=== PATIENT | male | born 1970 | race Caucasian/White ===

== ENCOUNTER 2017-03-08 19:36 | Emergency (ER) | payer BC ==
[~2017-03-08] VITALS: Ht 177.8 cm; Wt 91.6 kg
[~2017-03-08 19:36] MED LIST: ACET-1256 PO
[2017-03-08 19:38] VITALS: TEMP 36.8; Ht 177.8 cm; Wt 91.6 kg
[2017-03-08] MEDS ORDERED: DIPHTHERIA/TETANUS/PERTUSSIS 0.5 ML SYR/VIAL IM. ONE (20:00)
[2017-03-08] MEDS ORDERED: XYLOCAINE 1%/SOD BICARB 20 ML VIAL INFIL ONE (20:00)
[2017-03-08] MEDS ORDERED: TRAM-10 PO (20:52)
[2017-03-08] MEDS ORDERED: CEPH500C PO (20:52)
[2017-03-08] MEDS ORDERED: CEPHALEXIN 500MG HOME PACK 1 EA BTL PO ONE (21:00)
[2017-03-08] MEDS ORDERED: TRAMADOL HCL 50 MG HOME PACK PO ONE (21:00)
--- NOTE | 2017-03-08 21:15 | EMERGENCY ROOM VISIT NOTE ---
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 History of Present Illness The patient is a 46 year old male who presents to the Emergency Room with complaints of lacerations to his left index and long finger. The patient was working on a lawnmower when he cut his fingers on a fender. The patient reports significant bleeding from the wounds. He rates his discomfort a 2 out of 10. The patient is [id number]. He is uncertain of his last tetanus immunization. Review of Systems 10 system review was performed and was negative except for pertinent positives and negatives as indicated in history of present illness Past Medical/Surgical History Medical Problems: (1) GERD (gastroesophageal reflux disease) Family History Unremarkable Social History Smoking Status: Never Smoker Alcohol Use: heavy Marital Status: Housing Status: lives with family Occupation Status: retired Current/Historical Medications Scheduled Cephalexin Monohydrate (Keflex), 500 MG PO QID Scheduled PRN Acetaminophen (Tylenol), 1,000 MG PO Q6 PRN for Pain Tramadol (Ultram), 1-2 TAB PO Q4H PRN for Pain Allergies Coded Allergies: Codeine (Verified Allergy, Unknown, 03/08/17) Physical Exam Vital Signs Date Time Temp Pulse Resp B/P (MAP) Pulse Ox O2 Delivery O2 Flow Rate FiO2 03/08/17 19:38 36.8 88 16 149/95 99 Room Air Physical Exam CONSTITUTIONAL: Healthy and well nourished. Alert and oriented X 3 with positive affect. Patient does not appear in any acute distress. Smell of EtOH is present. HEENT: Normocephalic, atraumatic. Pupils equal, round and reactive. NECK: Full active range of motion without discomfort. MUSCULOSKELETAL: Examination shows lacerations of the left index and long fingers. The lacerations are transverse in orientation across the middle phalanx regions. No active bleeding noted. The patient is able to flex his fingers against resistance. Capillary refill is less than 2 seconds. Total laceration length of both fingers is 3 cm. INTEGUMENTARY: No rash or other significant dermatologic conditions noted. NEUROLOGIC: Left index and third fingertips are sensory intact. Medical Decision & Procedures Medications Administered Medications (Trade) Dose Ordered Sig/Keesha Route Start Time Stop Time Status Last Admin Dose Admin Lidocaine HCl (Buffered Lidocaine 1% Inj) 20 ml ONE ONCE INFIL 03/08/17 20:00 03/08/17 20:02 DC 03/08/17 20:06 20 ML Diphtheria/ Pertussis/Tetanus Vacc (Adacel Inj) 0.5 ml ONCE ONCE IM. 03/08/17 20:00 03/08/17 20:02 DC 03/08/17 20:08 0.5 ML Tramadol HCl (Ultram Home Pack) 1 homepack UD ONCE PO 03/08/17 21:00 03/08/17 21:01 DC 03/08/17 21:13 1 HOMEPACK Cephalexin Monohydrate (Keflex 500MG Home Pack) 1 homepack NOW ONCE PO 03/08/17 21:00 03/08/17 21:01 DC 03/08/17 21:12 1 HOMEPACK Procedure Laceration repair was performed under digital block anesthesia by our physician training program assistant student under my direct supervision. The patient also provided verbal consent for this procedure. Using buffered 1% lidocaine without epinephrine, good digital block anesthesia was administered. The wounds were then peripherally cleansed with iodine. The wounds were thoroughly pressure irrigated. The patient did have an active bleeding arterial of the index finger. At this point, a 5-0 nylon [id number] suture was applied with excellent hemostasis. The remaining wounds were then approximated using 5-0 nylon simple interrupted sutures. Bacitracin dressings were applied. ED Course Patient history and physical exam were performed. Nurse's notes were reviewed. The patient was administered Adacel IM. Laceration repair was performed under digital block anesthesia. The patient was provided a prescription for Keflex to minimize risk for infection. He was encouraged to alternate ibuprofen and Tylenol for baseline pain relief. He did receive a home pack and prescription for Ultram as needed for breakthrough pain. Suture removal in 12- 14 days, or seek reevaluation sooner for any signs of infection. The patient was happy with plan of care, and denied any pain at the time of discharge. The patient was also advised that his blood pressures were elevated while in the emergency department. He was instructed to follow-up with his family doctor for blood pressure recheck. Medical Decision Impression Primary Impression: Laceration of left index finger Additional Impressions: Laceration of left middle finger Elevated blood pressure reading Departure Information Dispostion Home / Self-Care Prescriptions Tramadol (Ultram) 50 Mg Tab 1-2 TAB PO Q4H Y for Pain, #20 TAB For Initial Treatment Prov: Bebeto Quintana PA 03/08/17 Cephalexin Monohydrate (Keflex) 500 Mg Cap 500 MG PO QID for 7 Days, #28 CAP Prov: Bebeto Quintana PA 03/08/17 Forms HOME CARE DOCUMENTATION FORM, IMPORTANT VISIT INFORMATION Patient Instructions [facility] Additional Instructions Keep wound clean and dry. Do not allow any crusting or dried blood to accumulate on sutures. If this occurs, use a 1:1 solution of hydrogen peroxide/ water on a Q-tip to clean the wound. Use an antibiotic ointment for 3-4 days, then let wound dry. Suture removal in 12-14 days. You may call your family doctor to schedule an appointment for suture removal. Return to the emergency department for any signs of infection (increasing redness, swelling, drainage). Ice and elevate for swelling and pain. Complete all Keflex antibiotics as prescribed - Keflex 500 mg 4 times daily. Ibuprofen 800 mg and/or Tylenol 1000 mg every 8 hours. You may also alternate these medications for more effective pain relief: Ibuprofen --4 HRS--> Tylenol --4 HRS--> ibuprofen --4 HRS--> Tylenol .... Ultram if needed for worse pain. Problem Qualifiers Primary Impression: Laceration of left index finger Encounter type: initial encounter Damage to nail status: without damage Foreign body presence: without foreign body Qualified Codes: S61.211A - Laceration without foreign body of left index finger without damage to nail, initial encounter Additional Impressions: Laceration of left middle finger Encounter type: initial encounter Damage to nail status: without damage Foreign body presence: without foreign body Qualified Codes: S61.213A - Laceration without foreign body of left middle finger without damage to nail, initial encounter
[2017-03-08 21:19] VITALS: BP 139/101; PULSE 94; O2SAT 94
== END 2017-03-08 21:19 | disposition home or self-care (01) ==
LOC: C.EDB 19:37 → C.EDD 21:19
DX: S61.211A Laceration without foreign body of left index finger without damage to nail, initial encounter (principal); S61.213A Laceration without foreign body of left middle finger without damage to nail, initial encounter; W45.8XXA Other foreign body or object entering through skin, initial encounter; Z23 Encounter for immunization; R03.0 Elevated blood-pressure reading, without diagnosis of hypertension; K21.9 Gastro-esophageal reflux disease without esophagitis; Z88.5 Allergy status to narcotic agent

== ENCOUNTER 2017-11-19 16:20 | Emergency (ER) | payer BC ==
[~2017-11-19] VITALS: Ht 177.8 cm; Wt 89.0 kg
[2017-11-19 16:23] VITALS: TEMP 36.8; Ht 177.8 cm; Wt 89.0 kg
--- NOTE | 2017-11-19 16:48 | EMERGENCY ROOM VISIT NOTE ---
History Report prepared by Ashley: Gabriella Morris Under the Supervision of: Dr. Sofia Moreno D.O. First contact with patient: 16:28 Chief Complaint: FLU LIKE SX Stated Complaint: POSSIBLE SHINGLES History of Present Illness The patient is a 47 year old male who presents to the Emergency Room with complaints of persistent flu like symptoms for the past 3 days. He is accompanied by his . He states he has experienced cold sweats, fevers, chills, rhinorrhea, a sore throat. He last had Ibuprofen for the fever at 1300 today. He denies any cough except for occasionally needing to clear mucous from his throat. He has been using over the counter cold medications with good relief. About 2 days ago, he developed a rash on his back. His is concerned he may have shingles and the patient notes he did have chicken pox as a child. The patient admits to diarrhea for the past few days. He has been having 4 to 5 episodes a day. He denies any melena but states his stool did look "dark black". He has not been vomiting. He has been experiencing more increased acid reflux recently but no longer takes daily Nexium. The patient admits to a history of diverticulitis approximately 2 years ago. His states he drinks "a lot of beer". 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 A total of 10 systems reviewed and were otherwise negative. Past Medical & Surgical Medical Problems: (1) GERD (gastroesophageal reflux disease) Social History Smoking Status: Never Smoker Alcohol Use: heavy Drug Use: none Marital Status: Housing Status: lives with family Occupation Status: retired Current/Historical Medications Scheduled Dextromethorphan-Phenylephrine (Vicks Dayquil Cold & Flu), 2 CAP PO PRN UD Esomeprazole Magnesium (Nexium), 1 CAP PO DAILY Gabapentin (Neurontin), 100 MG PO TID Scheduled PRN Acetaminophen (Tylenol), 2-3 TABS PO Q6 PRN for Pain Allergies Coded Allergies: Codeine (Verified Allergy, Unknown, 03/08/17) Physical Exam Vital Signs Date Time Temp Pulse Resp B/P (MAP) Pulse Ox O2 Delivery O2 Flow Rate FiO2 11/19/17 18:35 77 16 139/89 95 11/19/17 17:43 77 16 139/89 95 Room Air 11/19/17 16:23 36.8 79 18 158/97 97 Room Air Physical Exam GENERAL: alert, anxious appearing, well nourished, no distress, non-toxic EYE EXAM: normal conjunctiva, PERRL and EOM's grossly intact OROPHARYNX: no exudate, no erythema, lips, buccal mucosa, and tongue normal and mucous membranes are moist NECK: supple, no nuchal rigidity, no adenopathy, non-tender LUNGS: Clear to auscultation. Normal chest wall mechanics HEART: no murmurs, S1 normal and S2 normal ABDOMEN: abdomen soft, non-tender, normo-active bowel sounds, no masses, no rebound or guarding. RECTAL: No hemorrhoids, no anal fissure, no stool in rectal vault, mucous is guaiac negative on testing. BACK: Back is symmetrical on inspection and there is no deformity, no midline tenderness, no CVA tenderness. SKIN: Scattered crusted over erythematous lesions noted to the right lateral lumbar area, not class in appearance for zoster, no vesicles, no evidence of cellulitis, no ecchymosis, no drainage. UPPER EXTREMITIES: upper extremities are grossly normal. LOWER EXTREMITIES: No pitting edema. NEURO EXAM: Normal sensorium, cranial nerves II-XII grossly intact, normal speech, no gross weakness of arms, no gross weakness of legs. Medical Decision & Procedures Laboratory Results 11/19/17 17:15 Red Blood Count 4.67, Mean Corpuscular Volume 88.9, Mean Corpuscular Hemoglobin 31.7, Mean Corpuscular Hemoglobin Concent 35.7, Mean Platelet Volume 9.0, Neutrophils (%) (Auto) 59.9, Lymphocytes (%) (Auto) 24.7, Monocytes (%) (Auto) 8.0, Eosinophils (%) (Auto) 5.9, Basophils (%) (Auto) 0.8, Neutrophils # (Auto) 4.34, Lymphocytes # (Auto) 1.79, Monocytes # (Auto) 0.58, Eosinophils # (Auto) 0.43, Basophils # (Auto) 0.06 11/19/17 17:15 Test 11/19/17 17:15 White Blood Count 7.25 K/uL (4.8-10.8) Red Blood Count 4.67 M/uL (4.7-6.1) Hemoglobin 14.8 g/dL (14.0-18.0) Hematocrit 41.5 % (42-52) Mean Corpuscular Volume 88.9 fL (80-100) Mean Corpuscular Hemoglobin 31.7 pg (25-34) Mean Corpuscular Hemoglobin Concent 35.7 g/dl (32-36) Platelet Count 245 K/uL (130-400) Mean Platelet Volume 9.0 fL (7.4-10.4) Neutrophils (%) (Auto) 59.9 % Lymphocytes (%) (Auto) 24.7 % Monocytes (%) (Auto) 8.0 % Eosinophils (%) (Auto) 5.9 % Basophils (%) (Auto) 0.8 % Neutrophils # (Auto) 4.34 K/uL (1.4-6.5) Lymphocytes # (Auto) 1.79 K/uL (1.2-3.4) Monocytes # (Auto) 0.58 K/uL (0.11-0.59) Eosinophils # (Auto) 0.43 K/uL (0-0.5) Basophils # (Auto) 0.06 K/uL (0-0.2) RDW Standard Deviation 39.1 fL (36.4-46.3) RDW Coefficient of Variation 12.3 % (11.5-14.5) Immature Granulocyte % (Auto) 0.7 % Immature Granulocyte # (Auto) 0.05 K/uL (0.00-0.02) Prothrombin Time 10.6 SECONDS (9.0-12.0) Prothromb Time International Ratio 1.0 (0.9-1.1) Anion Gap 6.0 mmol/L (3-11) Est Creatinine Clear Calc Drug Dose 115.3 ml/min Estimated GFR () 117.7 Estimated GFR (Non- 101.6 BUN/Creatinine Ratio 15.3 (10-20) Calcium Level 8.9 mg/dl (8.5-10.1) Total Bilirubin 0.5 mg/dl (0.2-1) Aspartate Amino Transf (AST/SGOT) 15 U/L (15-37) Alanine Aminotransferase (ALT/SGPT) 36 U/L (12-78) Alkaline Phosphatase 90 U/L (45-117) Total Protein 7.1 gm/dl (6.4-8.2) Albumin 3.4 gm/dl (3.4-5.0) Globulin 3.7 gm/dl (2.5-4.0) Albumin/Globulin Ratio 0.9 (0.9-2) Laboratory results per my review. Medications Administered Medications (Trade) Dose Ordered Sig/Keesha Route Start Time Stop Time Status Last Admin Dose Admin Pantoprazole Sodium 40 mg/ Syringe 10 ml @ 5 mls/min NOW ONCE IV 11/19/17 17:15 11/19/17 17:16 DC 11/19/17 18:28 5 MLS/MIN Gabapentin (Neurontin Cap) 100 mg NOW STAT PO 11/19/17 17:55 11/19/17 17:56 DC 11/19/17 18:32 100 MG ED Course 1637: The patient was evaluated in room C5. A complete history and physical exam was performed. 1715: Pantoprazole Sodium 40 mg/Syringe 10 ml @ 5 mls/min IV. 1755: Gabapentin 100 mg PO. 1756: I reevaluated the patient. He is feeling better and resting comfortably. I updated him on his results and discharge instructions and he verbalized complete understanding and agreement. Medical Decision Prior records/ancillary studies reviewed. Triage Nursing notes reviewed. The patient's history was concerning for fever. Differential diagnosis: Etiologies such as viral syndrome, otitis, pharyngitis, pneumonia, influenza, meningitis, urinary tract infection, sepsis, bacteremia, as well as others were entertained. Patient well appearing here despite complaints. Patient heme-negative on guaiac testing and had a soft and nontender abdomen. Patient's labs reassuring. Discussed with him avoidance of acidity in his diet given the recent increasing GERD. Discussed risk for peptic ulcer disease and GI bleed. Discussed close follow-up with family doctor in possible need for additional GI evaluation given history. Discussed use of an acid reducing medication. Discussed symptoms to watch and return for, he verbalized understanding was agreeable with plan. Patient with no recurrence of any symptoms while here, well-appearing at time of discharge, vital signs stable and tolerating by mouth. Rash on the right lateral lumbar region not classic in appearance for zoster however possible given the patient is previously had chickenpox as a child. Areas were scattered and not coalescing, mild erythematous base noted however no vesicles and no crusting. Area appeared more consistent with skin irritation or prickly heat that was excoriated scratching. Medication Reconcilliation Current Medication List: was personally reviewed by me Blood Pressure Screening Patient's blood pressure: Elevated blood pressure Blood pressure disposition: Elevated BP felt to be situational Impression Primary Impression: Influenza-like symptoms Additional Impressions: GERD (gastroesophageal reflux disease) Rash Scribe Attestation The scribe's documentation has been prepared under my direction and personally reviewed by me in its entirety. I confirm that the note above accurately reflects all work, treatment, procedures, and medical decision making performed by me. Departure Information Dispostion Home / Self-Care Prescriptions Gabapentin (Neurontin) 100 Mg Cap 100 MG PO TID for Pain, #30 CAP Prov: Sofia Moreno, DO 11/19/17 Esomeprazole Magnesium (NEXIUM) 40 Mg Cap 1 CAP PO DAILY for 30 Days, #30 CAP Prov: Sofia Moreno, DO 11/19/17 Referrals No Doctor, Assigned (PCP) Patient Instructions ED GERD, ED Shingles, ED Viral Syndrome, [facility] Additional Instructions Please avoid acidic food and drink in your diet which could contribute to your reflex. Please take the acid reducing medication daily as prescribed. You may continue use Tylenol for fevers and body aches. Be very cautious about using ibuprofen/Advil/Aleve as this could contribute to stomach irritation. If you are going to use one of those anti-inflammatories please do not take it on an empty stomach. He may use the other nerve pain pill as prescribed for the back pain in the area of your possible shingles. You may have an additional rash that seems to follow your rib around to the front on that side. This is a normal pattern for shingles. This will slowly resolve on its own. Until all the lesions are crusted over her you are considered contagious. Please avoid anyone who is or immunocompromise during this time. If you have any worsening pain, have worsening reflux, develop vomiting, increased diarrhea, noticed black or bloody stools, persistent fevers, dizziness, weakness, or you' ve any other new concerns, please return the emergency room. Problem Qualifiers Additional Impressions: GERD (gastroesophageal reflux disease) Esophagitis presence: esophagitis presence not specified Qualified Codes: K21.9 - Gastro-esophageal reflux disease without esophagitis
[2017-11-19] MEDS ORDERED: PANTOprazole INJ 40 MG in SYRINGE 0 ML IV ONE (17:15)
[2017-11-19 17:25] LABS: BASO % 0.8 %; BASO ABS # 0.06 K/uL (0-0.2); EOS % 5.9 %; EOS ABS # 0.43 K/uL (0-0.5); HEMATOCRIT 41.5 % (42-52); HEMOGLOBIN 14.8 g/dL (14.0-18.0); IG# 0.05 K/uL (0.00-0.02); LYMPH % 24.7 %; LYMPH ABS # 1.79 K/uL (1.2-3.4); MEAN CELL VOLUME 88.9 fL (80-100); MEAN CORPUSCULAR HEMOGLOBIN 31.7 pg (25-34); MEAN CORPUSCULAR HGB CONC 35.7 g/dl (32-36); MONO ABS # 0.58 K/uL (0.11-0.59); NEUT % 59.9 %; NEUT ABS # 4.34 K/uL (1.4-6.5); PLATELET COUNT 245 K/uL (130-400); RED CELL DISTRIBUTION WIDTH CV 12.3 % (11.5-14.5); RED CELL DISTRIBUTION WIDTH SD 39.1 fL (36.4-46.3); WHITE BLOOD COUNT 7.25 K/uL (4.8-10.8)
[2017-11-19] MEDS ORDERED: DEXT1CAP9 PO (17:35)
[2017-11-19 17:43] LABS: ALBUMIN 3.4 gm/dl (3.4-5.0); CALCIUM 8.9 mg/dl (8.5-10.1); CREATININE 0.88 mg/dl (0.60-1.40)
[2017-11-19 17:46] LABS: TOTAL PROTEIN 7.1 gm/dl (6.4-8.2)
[2017-11-19] MEDS ORDERED: GABAPENTIN 100 MG CAP PO STA (17:55)
[2017-11-19] MEDS ORDERED: NXM/40 PO (18:15)
[2017-11-19] MEDS ORDERED: NRN/100 PO (18:15)
[2017-11-19 18:35] VITALS: BP 139/89; PULSE 77; O2SAT 95
== END 2017-11-19 18:35 | disposition home or self-care (01) ==
LOC: C.EDB 16:21 → C.EDC 18:35
DX: R50.9 Fever, unspecified (principal); J34.89 Other specified disorders of nose and nasal sinuses; J02.9 Acute pharyngitis, unspecified; R21 Rash and other nonspecific skin eruption; R19.7 Diarrhea, unspecified; K21.9 Gastro-esophageal reflux disease without esophagitis; Z72.89 Other problems related to lifestyle; Z88.6 Allergy status to analgesic agent